=== PATIENT | male | born 1960 | race Caucasian/White ===

== ENCOUNTER 2021-01-19 16:09 | Emergency (ER) | payer OTHER ==
[~2021-01-19] VITALS: Ht 162.6 cm; Wt 136.0 kg
[2021-01-19] MEDS ORDERED: diazePAM 5 MG TABLET PO ONE (17:45)
--- NOTE | 2021-01-19 17:46 | PHYS DOC ---
Past Medical History Past Medical History: No Pertinent History (KODAK CEJA DO) Past Surgical History: Other Additional Past Surgical Histo: carpal tunnel (KODAK CEJA DO) Smoking Status: Unknown if ever smoked Additional Information: chew tobacco Alcohol Use: None (KODAK CEJA DO) General Adult EDM: Chief Complaint: LOWER EXT PAIN HPI: HPI: 60-year-old male past medical history of obesity, presents the ED with complaints of " burning in my right leg," for the past week that is exacerbated when bearing weight on an extended knee. Reports pain becomes sharp and shoots up his posterior leg but does not cross his knee. Was seen at [place] [facility] and referred here for lower extremity ultrasound, concern for DVT. Patient has worked [employer] and [employer] for 28 years. Covid vaccine is up-to-date. No known history of Covid. Does not have a PCP for preventative routine care. Takes no medications. Denies any tobacco use or alcohol abuse. When asked if he is short of breath he states "a little winded only when I walk real far," but he attributes the shortness of breath to the radiating right foot pain (started after foot pain onset). Not recall any prior trauma or injury to the right lower extremity. No history of recent fluoroquinolone abuse. No falls or head injury. FH-biological father with ACS. (KODAK CEJA DO) Review of Systems: Review of Systems: Constitutional: Denies fever or chills. [] Eyes: Denies change in visual acuity. [] HENT: Denies nasal congestion or sore throat. [] Respiratory: Denies cough or increased work of breathing or hemoptysis Cardiovascular: Denies chest pain or edema. [] GI: Denies abdominal pain, nausea, vomiting, bloody stools or diarrhea. [] : Denies dysuria or hematuria Musculoskeletal: Denies back pain or joint deformity Integument: Denies rash or diaphoresis Neurologic: Denies headache, focal weakness or sensory changes. [] Endocrine: Denies polyuria or polydipsia. [] Lymphatic: Denies swollen glands. [] Psychiatric: Denies depression or anxiety. [] (KODAK CEJA DO) Heart Score: C/O Chest Pain: No Risk Factors: Risk Factors: DM, Current or recent (<one month) smoker, HTN, HLP, family history of CAD, obesity. Risk Scores: Score 0 - 3: 2.5% MACE over next 6 weeks - Discharge Home Score 4 - 6: 20.3% MACE over next 6 weeks - Admit for Clinical Observation Score 7 - 10: 72.7% MACE over next 6 weeks - Early Invasive Strategies (KODAK CEJA DO) C/O Chest Pain: No (JULIANO RIZVI DO) Current Medications: Current Medications Medications (Trade) Dose Ordered Sig/Nora Start Time Stop Time Status Last Admin Dose Admin Diazepam (Valium) 5 mg 1X ONCE 01/19/21 17:45 01/19/21 17:46 ([facility]) Allergies: Allergies: Allergies Coded Allergies Type Severity Reaction Last Updated Verified No Known Drug Allergies 01/19/21 No (KODAK CEJA DO) Physical Exam: PE: Constitutional: Well developed, well nourished, no acute distress, non-toxic appearance, obese HENT: Normocephalic, atraumatic, Eyes: EOMI, conjunctiva normal, no discharge. Neck: Normal range of motion, supple, Cardiovascular: S1/2 present, regular rhythm Lungs & Thorax: Speaking in full sentences, bilateral equal chest rise, no tachypnea or increased work of breathing, 94% room air Abdomen: soft, no tenderness, Skin: Warm, dry, no erythema, very dry skin over feet/posterior proximal calve w/scaling- superimposed fungal infection Extremities: No tenderness, no cyanosis, bilateral lower extremity edema (appears equal) with DP pulses intact, slight pedal cyanosis although cap refill < 1 second, no severe pain out of proportion Neurologic: Alert and oriented X 3, normal motor function, normal sensory function, no focal deficits noted. [] Psychologic: Affect normal, judgement normal, mood normal. [] ([facility]) Current Patient Data: Vital Signs: Vital Signs Date Time Temp Pulse Resp B/P (MAP) Pulse Ox O2 Delivery O2 Flow Rate FiO2 01/19/21 16:20 98.3 77 20 159/76 (103) 94 Room Air 98.3 ([facility]) EKG: EKG: [] ([facility]) EKG: EKG performed at 1858 heart rate [address] elevation no ST depression acute OH (JULIANO RIZVI DO) Radiology/Procedures: Radiology/Procedures: [] (KODAK CEJA DO) Impression: INDICATION: Reason: bl leg swelling, R worse than L / Spl. Instructions: / History: COMPARISON: None. TECHNIQUE: Grayscale, color and doppler ultrasound images were obtained of the bilateral lower extremity venous vasculature. Some limitation secondary to overlying structures obscuring. RIGHT: No thrombus identified in the common femoral vein, femoral vein, popliteal vein or visualized calf veins. LEFT: No thrombus identified in the common femoral vein, femoral vein, popliteal vein or visualized calf veins. IMPRESSION: * No thrombus identified in deep venous system of bilateral lower extremities. Electronically signed by: Rd Burciaga MD (01/19/2021 6:09 PM) [id number] IMPRESSION: * Enlarged cardiomediastinal silhouette. * Mild interstitial prominence bilaterally. Causes such as mild pulmonary vascular congestion could have this appearance as well as mild interstitial infiltrate. (JULIANO RIZVI DO) Course & Med Decision Making: Course & Med Decision Making Pertinent Labs and Imaging studies reviewed. (See chart for details) Concern for bilateral lower extremity swelling with right lower extremity radicular pain and exertional dyspnea for 1 week. Pt is pending labs, cxr, ekg and le ultrasound. Due to shift change, patient was signed out to oncoming physician Dr. Bunch for further evaluation disposition. (KODAK CEJA DO) Course & Med Decision Making Assumed care at shift change 1800hrs. Pending radiologic imaging and labs. US negative for DVT. CXR radiologist concern for vascular congestion. Labs reviewed - Troponin negative. BNP pending. Discussed radiology and labs with patient @ 2000hrs. Patient would like to be discharged. States only short of breath when walking-- attributes to his leg pain. Will discharge patient at requested. Will Rx lasix and ultram. Patient states he can follow up with new PCP on . Patient will also be provided of PCP to follow up with. (JULIANO RIZVI DO) Dragon Disclaimer: Dragon Disclaimer: This electronic medical record was generated, in whole or in part, using a voice recognition dictation system. (KODAK CEJA DO) Departure Departure Impression: Primary Impression: Radicular pain of right lower extremity Additional Impressions: Leg edema Leg pain Disposition: DC HOME SELF CARE/HOMELESS Condition: STABLE Referrals: NO PCP (PCP) Patient Instructions: Edema Scripts Tramadol Hcl (ULTRAM) 50 Mg Tablet 1 TAB PO PRN Q6HRS PRN for pain MDD 4 Tablet(s) for 7 Days, #28 TAB 0 Refills Prov: JULIANO RIZVI DO 01/19/21 Furosemide (LASIX) 20 Mg Tablet 20 MG PO DAILY, #20 TAB Prov: JULIANO RIZVI DO 01/19/21 KODAK CEJA DO Jan 19, 2021 17:46 JULIANO RIZVI I DO Jan 19, 2021 19:12
--- NOTE | 2021-01-19 18:12 | RAD ---
INDICATION: Reason: bl leg swelling, R worse than L / Spl. Instructions: / History: COMPARISON: None. TECHNIQUE: Grayscale, color and doppler ultrasound images were obtained of the bilateral lower extrem ity venous vasculature. Some limitation secondary to overlying structures obscuring. RIGHT: No thrombus identified in the common femoral vein, femoral vein, popliteal vein or visualized calf ve ins. LEFT: No thrombus identified in the common femoral vein, femoral vein, popliteal vein or visualized calf ve ins. IMPRESSION: * No thrombus identified in deep venous system of bilateral lower extremities. Electronically signed by: Rd Burciaga MD (01/19/2021 6:09 PM) [id number]
[2021-01-19 18:20] LABS: BASO # 0.1 x10^3/uL (0.0-0.2); BASO % 1 % (0-3); EOS # 0.2 x10^3/uL (0.0-0.7); EOS % 2 % (0-3); HEMATOCRIT 48.8 % (39.0-53.0); HEMOGLOBIN 16.6 g/dL (13.0-17.5); LYMPH # 1.8 x10^3/uL (1.0-4.8); LYMPH % 24 % (24-48); MEAN CORPUSCULAR HEMOGLOBIN 31 pg (25-35); MEAN CORPUSCULAR HGB CONC 34 g/dL (31-37); MEAN CORPUSCULAR VOLUME 92 fL (79-100); MONO # 0.6 x10^3/uL (0.0-1.1); MONO % 8 % (0-9); NEUT % 65 % (31-73); PLATELET COUNT 230 x10^3/uL (140-400); RED BLOOD COUNT 5.32 x10^6/uL (4.30-5.70); RED CELL DISTRIBUTION WIDTH 14.1 % (11.5-14.5); WHITE BLOOD COUNT 7.6 x10^3/uL (4.0-11.0)
[2021-01-19 18:27] LABS: CALCIUM 8.8 mg/dL (8.5-10.1); CREATININE 0.9 mg/dL (0.7-1.3); GFR 86.7; POTASSIUM 4.3 mmol/L (3.5-5.1)
[2021-01-19 18:29] LABS: PROTHROMBIN TIME PATIENT 12.8 SEC (11.7-14.0)
[2021-01-19 18:32] LABS: ALBUMIN 3.6 g/dL (3.4-5.0); ALBUMIN/GLOBULIN RATIO 0.9 (1.0-1.7); TOTAL BILIRUBIN 0.4 mg/dL (0.2-1.0); TOTAL PROTEIN 7.7 g/dL (6.4-8.2)
--- NOTE | 2021-01-19 19:01 | RAD ---
INDICATION: Reason: FLORINDA 12 / Spl. Instructions: / History: . Leg swelling. Concern for edema. COMPARISON: None. FINDINGS: Single view of chest obtained. Cardiomediastinal silhouette is prominent in size. Prominence of the interstitial markings bilaterall y as well as fullness in the bilateral pulmonary hilum. Left lung base is obscured by cardiac silhoue tte. IMPRESSION: * Enlarged cardiomediastinal silhouette. * Mild interstitial prominence bilaterally. Causes such as mild pulmonary vascular congestion could have this appearance as well as mild interstitial infiltrate. Electronically signed by: Rd Burciaga MD (01/19/2021 6:58 PM) [id number]
[2021-01-19 20:00] VITALS: BP 148/78
[2021-01-19] MEDS ORDERED: FURO-69 PO (20:00)
[2021-01-19] MEDS ORDERED: TRAM-48 PO (20:00)
--- NOTE | 2021-01-19 20:04 | EKG ---
[facility] [address] [place] [address] Test Date: 2021-01-19 Test Time: 18:58:56 Pat Name: SHIRA SEARS Department: Room: Gender: M Purler: : 1960 Requested By: KODAK CEJA Order Number: [id number] Reading MD: Measurements Intervals [place] Rate: 78 P: 38 IL: 154 QRS: 30 QRSD: 96 T: 12 QT: 356 QTc: 409 Interpretive Statements SINUS RHYTHM QRS(T) CONTOUR ABNORMALITY CONSIDER INFERIOR MYOCARDIAL DAMAGE POSSIBLY ABNORMAL ECG RI6.01 No previous ECG available for comparison
== END 2021-01-19 20:00 | disposition home or self-care (01) ==
LOC: ER 16:09
DX: M79.671 Pain in right foot (principal); R06.02 Shortness of breath; R60.0 Localized edema; Z98.890 Other specified postprocedural states
CPT/HCPCS: 36415; 71045; 80053; 83735; 83880; 84484; 85025; 85610; 85730; 93005; 93970; 99285

== ENCOUNTER → 2021-01-26 | Outpatient (CLI) | payer OTHER ==
[2021-01-19 20:00] VITALS: BP 148/78
[~2021-01-26] MED LIST: FURO-69 PO; TRAM-48 PO
--- NOTE | 2021-01-26 17:00 | KCIC ---
Exam performed: 2 views right tibia fibula and views 3 knee. Clinical indication: Right knee and neck pain Date of Service: 01/26/2021 Comparison: None available Findings: AP and lateral view of the right tibia fibula demonstrates normal alignment of the knee and ankle rm nt. There is no acute fracture or dislocation. There is mild soft tissue swelling. No foreign body. AP lateral and oblique views of the right knee is obtained. Normal alignment of the medial and latera l tibiofemoral joint is preserved. The patellofemoral joint appears unremarkable. The articular raven ns are smooth. There is no fracture or dislocation. Evidence of calcific loose body or joint effusion is absent. Impression: 1. No acute bony abnormality seen in the right knee or right tibia fibula. Electronically signed by: Ladonna Dinero MD (01/26/2021 4:58 PM) [id number]
== END ==
LOC: KCIC 10:56
PROVIDERS: ATTEND Family Medicine
DX: M25.561 Pain in right knee (principal); M79.661 Pain in right lower leg
CPT/HCPCS: 73562; 73590